=== PATIENT | female | born 1980 | race Caucasian/White ===

== ENCOUNTER 2016-11-01 20:01 | Emergency (ER) | payer MEDICARE, MEDICAID, OTHER ==
[~2016-11-01 20:01] MED LIST: ABIL5TAB6 PO; B COTAB3 PO; BIOT5000 PO; BUSP30TA PO; CHRO1CAP4 PO; CYCL-36 PO; CYMB60CA PO; DEPO400I IM; FIBECAP2 PO; GABA800T PO; KETO10 PO; LEVEMIR SC; LORTA5 PO; MACR100C PO; MULTLIQ PO; NOVOLOGP2 SQ; PRAV80 PO; VASO10TA8 PO; ZINC30TA2 PO; ZOFR4TAB3 SL; [UNRECOGNIZED DRUG - CODE] PO
[2016-11-01 20:04] VITALS: BP 118/64; PULSE 98; RESP 16; TEMP 98.1; O2SAT 100
== END 2016-11-01 22:40 | disposition left against medical advice (07) ==
LOC: NED 20:01
DX: R20.0 Anesthesia of skin (principal)
CPT/HCPCS: 99281